=== PATIENT | male | born 1990 | race Hispanic/Latino ===

== ENCOUNTER 2021-05-09 10:57 | Inpatient (IN) | payer SELFPAY ==
[2021-05-09 11:32] LABS: #Lymphocytes 1.4 thou/uL (1.20-3.40); #Monocytes 0.4 thou/uL (0.11-0.59); #Neutrophils 6.3 thou/uL (1.40-6.50); %Basophils 0.1 % (0.0-1.0); %Eosinophils 0.1 % (0.0-10.0); %Lymphocytes 17.6 % (21.0-51.0); %Monocytes 5.2 % (0.0-10.0); Hemoglobin 15.4 g/dL (14.0-18.0); Mean Corpuscular HGB CONC 33.3 g/dL (32.0-36.0); Mean Corpuscular Volume 86.9 fL (78.0-98.0); Mean Platelet Volume 7.1 fL (7.4-10.4); Platelet Count 264 thou/uL (130-400); RBC Distribution Width 11.8 % (11.5-14.5); Red Blood Cell (RBC) Count 5.31 mill/uL (4.70-6.10); White Blood Cell (WBC) Count 8.2 thou/uL (4.8-10.8)
[2021-05-09] MEDS ORDERED: Albuterol 200 PUFF (6.7GM INHALER) ONE (11:45)
[2021-05-09] MEDS ORDERED: Ketorolac Tromethamine 30 MG/ML VIAL ONE (11:45)
[2021-05-09 11:47] LABS: ALT (SGPT) 239 U/L (8-55); AST (SGOT) 145 U/L (5-34); Alkaline Phosphatase 117 U/L (40-110); Anion Gap 16 mmol/L (10-20); BUN (Urea Nitrogen) 7 mg/dL (8.9-20.6); Bilirubin, Total 0.6 mg/dL (0.2-1.2); Calc. Creatinine Clearance 0 mL/min (70-130); Calcium 9.2 mg/dL (7.8-10.44); Carbon Dioxide 23 mmol/L (22-29); Chloride 103 mmol/L (98-107); Globulin 4.1 g/dL (2.4-3.5); Glucose 139 mg/dL (70-105); Potassium 3.5 mmol/L (3.5-5.1); Protein, Total 8.1 g/dL (6.0-8.3); Sodium 138 mmol/L (136-145)
[2021-05-09] MEDS ORDERED: Iopamidol-370 76% 500 ML 1 ML ONE (12:19)
[2021-05-09 14:44] LABS: SARS-CoV-2 NAA Rapid Test DETECTED (NotDetected)
[2021-05-09] MEDS ORDERED: Acetaminophen 500 MG TAB ONE (16:36)
[2021-05-09] MEDS ORDERED: Ondansetron PF 4 MG/2 ML Vial IVP PRN (16:42)
[2021-05-09] MEDS ORDERED: Senokot S 8.6-50 MG TAB PO PRN (16:42)
[2021-05-09] MEDS ORDERED: Benzonatate 100 MG CAP PO PRN (16:45)
[2021-05-09] MEDS ORDERED: Melatonin 3 MG TAB PO PRN (16:47)
[2021-05-09] MEDS ORDERED: Albuterol 200 PUFF (6.7GM INHALER) INH PRN (20:34)
[2021-05-09] MEDS ORDERED: REMDESIVIR 200 MG in Sodium Chloride 0.9% 250 ML 210 ML IV SCH (21:00)
[2021-05-09] MEDS ORDERED: Dexamethasone 10 MG/ML VIAL SLOW IVP SCH (21:15)
[2021-05-09] MEDS: Acetaminophen 325 MG TAB PO PRN (21:48)
[2021-05-09] MEDS ORDERED: Dexamethasone 4 mg/ml Vial SLOW IVP SCH (22:00)
[2021-05-09 22:48] VITALS: BMI 32.0
[2021-05-10] MEDS ORDERED: Ibuprofen 100 MG/5 ML UDCUP PO SCH (00:15)
[2021-05-10 06:06] LABS: #Lymphocytes 0.8 thou/uL (1.20-3.40); #Monocytes 0.3 thou/uL (0.11-0.59); #Neutrophils 6.2 thou/uL (1.40-6.50); %Basophils 0.4 % (0.0-1.0); %Lymphocytes 11.3 % (21.0-51.0); %Monocytes 3.5 % (0.0-10.0); %Neutrophils 84.9 % (42.0-75.0); Hemoglobin 13.6 g/dL (14.0-18.0); Mean Corpuscular HGB CONC 32.2 g/dL (32.0-36.0); Mean Corpuscular Hemoglobin 28.3 pg (27.0-31.0); Mean Corpuscular Volume 87.8 fL (78.0-98.0); Mean Platelet Volume 6.8 fL (7.4-10.4); Platelet Count 284 thou/uL (130-400); RBC Distribution Width 11.5 % (11.5-14.5); White Blood Cell (WBC) Count 7.3 thou/uL (4.8-10.8)
[2021-05-10 06:29] LABS: ALT (SGPT) 176 U/L (8-55); AST (SGOT) 94 U/L (5-34); Albumin 3.6 g/dL (3.5-5.0); Alkaline Phosphatase 107 U/L (40-110); Anion Gap 16 mmol/L (10-20); BUN (Urea Nitrogen) 11 mg/dL (8.9-20.6); Bilirubin, Total 0.5 mg/dL (0.2-1.2); CRP (Inflammatory) 20.62 mg/dL (= or < 0.5); Calc. Creatinine Clearance 221 mL/min (70-130); Calcium 8.4 mg/dL (7.8-10.44); Carbon Dioxide 23 mmol/L (22-29); Chloride 107 mmol/L (98-107); Globulin 2.9 g/dL (2.4-3.5); Glucose 163 mg/dL (70-105); Potassium 3.9 mmol/L (3.5-5.1); Protein, Total 6.5 g/dL (6.0-8.3); Sodium 142 mmol/L (136-145)
[2021-05-10] MEDS: Enoxaparin Sodium 40 MG/0.4 ML SYRINGE SC SCH (08:56)
[2021-05-10] MEDS: Dexamethasone 10 MG/ML VIAL SLOW IVP SCH (08:56)
[2021-05-10] MEDS: Acetaminophen 325 MG TAB PO PRN (14:00)
[2021-05-10] MEDS: REMDESIVIR 100 MG in Sodium Chloride 0.9% 250 ML 230 ML IV SCH (20:22)
[2021-05-11] MEDS: Enoxaparin Sodium 40 MG/0.4 ML SYRINGE SC SCH (08:58)
[2021-05-11] MEDS: Dexamethasone 10 MG/ML VIAL SLOW IVP SCH (08:58)
[2021-05-11] MEDS: Acetaminophen 325 MG TAB PO PRN ×2 (09:02→19:59)
[2021-05-11] MEDS ORDERED: Ascorbic Acid 500 mg Chewable Tablet PO SCH (18:45)
[2021-05-11] MEDS ORDERED: Zinc Sulfate 220 MG CAP PO SCH (18:45)
[2021-05-11] MEDS: REMDESIVIR 100 MG in Sodium Chloride 0.9% 250 ML 230 ML IV SCH (20:00)
[2021-05-12 05:40] LABS: #Lymphocytes 1.2 thou/uL (1.20-3.40); #Monocytes 1.1 thou/uL (0.11-0.59); #Neutrophils 10.3 thou/uL (1.40-6.50); %Basophils 0.1 % (0.0-1.0); %Eosinophils 0.3 % (0.0-10.0); %Lymphocytes 9.6 % (21.0-51.0); %Neutrophils 81.1 % (42.0-75.0); Hemoglobin 14.4 g/dL (14.0-18.0); Mean Corpuscular HGB CONC 32.8 g/dL (32.0-36.0); Mean Corpuscular Hemoglobin 28.6 pg (27.0-31.0); Mean Corpuscular Volume 87.2 fL (78.0-98.0); Mean Platelet Volume 6.5 fL (7.4-10.4); Platelet Count 440 thou/uL (130-400); RBC Distribution Width 11.4 % (11.5-14.5); Red Blood Cell (RBC) Count 5.02 mill/uL (4.70-6.10); White Blood Cell (WBC) Count 12.7 thou/uL (4.8-10.8)
[2021-05-12 06:45] LABS: ALT (SGPT) 120 U/L (8-55); AST (SGOT) 57 U/L (5-34); Albumin 3.6 g/dL (3.5-5.0); Alkaline Phosphatase 93 U/L (40-110); Anion Gap 14 mmol/L (10-20); BUN (Urea Nitrogen) 17 mg/dL (8.9-20.6); Bilirubin, Total 0.5 mg/dL (0.2-1.2); Calc. Creatinine Clearance 210 mL/min (70-130); Calcium 8.6 mg/dL (7.8-10.44); Carbon Dioxide 25 mmol/L (22-29); Chloride 105 mmol/L (98-107); Glucose 114 mg/dL (70-105); Potassium 3.8 mmol/L (3.5-5.1); Protein, Total 6.6 g/dL (6.0-8.3); Sodium 140 mmol/L (136-145)
[2021-05-12] MEDS: Ascorbic Acid 500 mg Chewable Tablet PO SCH (08:32)
[2021-05-12] MEDS: Enoxaparin Sodium 40 MG/0.4 ML SYRINGE SC SCH (08:32)
[2021-05-12] MEDS: Dexamethasone 10 MG/ML VIAL SLOW IVP SCH (08:32)
[2021-05-12] MEDS: Zinc Sulfate 220 MG CAP PO SCH (08:32)
[2021-05-12] MEDS: REMDESIVIR 100 MG in Sodium Chloride 0.9% 250 ML 230 ML IV SCH (20:04)
[2021-05-13 06:09] LABS: #Basophils 0.1 thou/uL (0.0-0.2); #Eosinphils 0.1 thou/uL (0.0-0.7); #Lymphocytes 1.7 thou/uL (1.20-3.40); #Monocytes 1.3 thou/uL (0.11-0.59); #Neutrophils 12.2 thou/uL (1.40-6.50); %Basophils 0.4 % (0.0-1.0); %Eosinophils 0.4 % (0.0-10.0); %Lymphocytes 10.9 % (21.0-51.0); %Monocytes 8.2 % (0.0-10.0); %Neutrophils 80.2 % (42.0-75.0); Hemoglobin 14.6 g/dL (14.0-18.0); Mean Corpuscular HGB CONC 32.9 g/dL (32.0-36.0); Mean Corpuscular Hemoglobin 28.7 pg (27.0-31.0); Mean Corpuscular Volume 87.2 fL (78.0-98.0); Mean Platelet Volume 6.3 fL (7.4-10.4); Platelet Count 489 thou/uL (130-400); RBC Distribution Width 11.7 % (11.5-14.5); Red Blood Cell (RBC) Count 5.09 mill/uL (4.70-6.10); White Blood Cell (WBC) Count 15.2 thou/uL (4.8-10.8)
[2021-05-13 06:34] LABS: ALT (SGPT) 168 U/L (8-55); AST (SGOT) 98 U/L (5-34); Albumin 3.5 g/dL (3.5-5.0); Alkaline Phosphatase 93 U/L (40-110); Anion Gap 16 mmol/L (10-20); BUN (Urea Nitrogen) 19 mg/dL (8.9-20.6); Bilirubin, Total 0.6 mg/dL (0.2-1.2); Calc. Creatinine Clearance 215 mL/min (70-130); Calcium 8.5 mg/dL (7.8-10.44); Carbon Dioxide 22 mmol/L (22-29); Chloride 106 mmol/L (98-107); Glucose 106 mg/dL (70-105); Potassium 4.1 mmol/L (3.5-5.1); Protein, Total 6.5 g/dL (6.0-8.3); Sodium 140 mmol/L (136-145)
[2021-05-13] MEDS: Enoxaparin Sodium 40 MG/0.4 ML SYRINGE SC SCH (08:25)
[2021-05-13] MEDS: Ascorbic Acid 500 mg Chewable Tablet PO SCH (08:25)
[2021-05-13] MEDS: Dexamethasone 10 MG/ML VIAL SLOW IVP SCH (08:25)
[2021-05-13] MEDS: Zinc Sulfate 220 MG CAP PO SCH (08:25)
[2021-05-13] MEDS: REMDESIVIR 100 MG in Sodium Chloride 0.9% 250 ML 230 ML IV SCH (21:16)
[2021-05-13] MEDS: Acetaminophen 325 MG TAB PO PRN (21:16)
[2021-05-14] MEDS: Dexamethasone 10 MG/ML VIAL SLOW IVP SCH ×2 (08:19→21:33)
[2021-05-14] MEDS: Ascorbic Acid 500 mg Chewable Tablet PO SCH (08:19)
[2021-05-14] MEDS: Enoxaparin Sodium 40 MG/0.4 ML SYRINGE SC SCH (08:19)
[2021-05-14] MEDS: Zinc Sulfate 220 MG CAP PO SCH (08:19)
[2021-05-14] MEDS: Famotidine/PF 20 mg/2ml Vial SLOW IVP SCH (21:33)
[2021-05-14] MEDS: BARICITINIB 2 MG TAB PO SCH (21:33)
[2021-05-14] MEDS: Enoxaparin Sodium 100 MG/ML SYRINGE SC SCH (21:33)
[2021-05-14] MEDS: Acetaminophen 325 MG TAB PO PRN (21:37)
[2021-05-15 07:41] LABS: #Basophils 0.1 thou/uL (0.0-0.2); #Eosinphils 0.1 thou/uL (0.0-0.7); #Lymphocytes 1.7 thou/uL (1.20-3.40); #Monocytes 0.9 thou/uL (0.11-0.59); #Neutrophils 13.7 thou/uL (1.40-6.50); %Basophils 0.4 % (0.0-1.0); %Eosinophils 0.3 % (0.0-10.0); %Lymphocytes 10.2 % (21.0-51.0); %Monocytes 5.3 % (0.0-10.0); %Neutrophils 83.7 % (42.0-75.0); Mean Corpuscular HGB CONC 33.4 g/dL (32.0-36.0); Mean Corpuscular Hemoglobin 29.3 pg (27.0-31.0); Mean Corpuscular Volume 87.7 fL (78.0-98.0); Mean Platelet Volume 6.6 fL (7.4-10.4); Platelet Count 603 thou/uL (130-400); RBC Distribution Width 11.7 % (11.5-14.5); Red Blood Cell (RBC) Count 5.12 mill/uL (4.70-6.10); White Blood Cell (WBC) Count 16.4 thou/uL (4.8-10.8)
[2021-05-15 08:02] LABS: ALT (SGPT) 116 U/L (8-55); AST (SGOT) 34 U/L (5-34); Albumin 3.6 g/dL (3.5-5.0); Alkaline Phosphatase 87 U/L (40-110); Anion Gap 14 mmol/L (10-20); BUN (Urea Nitrogen) 18 mg/dL (8.9-20.6); Bilirubin, Total 0.5 mg/dL (0.2-1.2); Calc. Creatinine Clearance 218 mL/min (70-130); Carbon Dioxide 24 mmol/L (22-29); Chloride 103 mmol/L (98-107); Globulin 3.2 g/dL (2.4-3.5); Glucose 130 mg/dL (70-105); Potassium 4.5 mmol/L (3.5-5.1); Protein, Total 6.8 g/dL (6.0-8.3); Sodium 136 mmol/L (136-145)
[2021-05-15] MEDS: Famotidine/PF 20 mg/2ml Vial SLOW IVP SCH ×2 (09:22→21:29)
[2021-05-15] MEDS: Dexamethasone 10 MG/ML VIAL SLOW IVP SCH ×2 (09:22→21:30)
[2021-05-15] MEDS: Ascorbic Acid 500 mg Chewable Tablet PO SCH (09:22)
[2021-05-15] MEDS: Zinc Sulfate 220 MG CAP PO SCH (09:23)
[2021-05-15] MEDS: Enoxaparin Sodium 100 MG/ML SYRINGE SC SCH ×2 (11:20→21:29)
[2021-05-15] MEDS: BARICITINIB 2 MG TAB PO SCH (21:29)
[2021-05-15] MEDS: Acetaminophen 325 MG TAB PO PRN (21:43)
[2021-05-16 06:52] LABS: #Eosinphils 0.1 thou/uL (0.0-0.7); #Monocytes 1.1 thou/uL (0.11-0.59); #Neutrophils 16.4 thou/uL (1.40-6.50); %Basophils 0.1 % (0.0-1.0); %Eosinophils 0.7 % (0.0-10.0); %Monocytes 5.4 % (0.0-10.0); %Neutrophils 83.8 % (42.0-75.0); Hemoglobin 15.6 g/dL (14.0-18.0); Mean Corpuscular HGB CONC 32.6 g/dL (32.0-36.0); Mean Corpuscular Hemoglobin 28.3 pg (27.0-31.0); Mean Platelet Volume 6.7 fL (7.4-10.4); Platelet Count 658 thou/uL (130-400); RBC Distribution Width 11.7 % (11.5-14.5); Red Blood Cell (RBC) Count 5.51 mill/uL (4.70-6.10); White Blood Cell (WBC) Count 19.6 thou/uL (4.8-10.8)
[2021-05-16 07:14] LABS: ALT (SGPT) 154 U/L (8-55); AST (SGOT) 53 U/L (5-34); Albumin 3.7 g/dL (3.5-5.0); Alkaline Phosphatase 90 U/L (40-110); Anion Gap 15 mmol/L (10-20); BUN (Urea Nitrogen) 20 mg/dL (8.9-20.6); Bilirubin, Total 0.6 mg/dL (0.2-1.2); Calc. Creatinine Clearance 215 mL/min (70-130); Calcium 9.2 mg/dL (7.8-10.44); Carbon Dioxide 21 mmol/L (22-29); Chloride 105 mmol/L (98-107); Globulin 3.4 g/dL (2.4-3.5); Glucose 127 mg/dL (70-105); Potassium 4.5 mmol/L (3.5-5.1); Protein, Total 7.1 g/dL (6.0-8.3); Sodium 136 mmol/L (136-145)
[2021-05-16] MEDS: Famotidine/PF 20 mg/2ml Vial SLOW IVP SCH ×2 (08:26→21:36)
[2021-05-16] MEDS: Enoxaparin Sodium 100 MG/ML SYRINGE SC SCH ×2 (08:26→21:36)
[2021-05-16] MEDS: Ascorbic Acid 500 mg Chewable Tablet PO SCH (08:26)
[2021-05-16] MEDS: Dexamethasone 10 MG/ML VIAL SLOW IVP SCH ×2 (08:26→21:36)
[2021-05-16] MEDS: Zinc Sulfate 220 MG CAP PO SCH (08:27)
[2021-05-16] MEDS: Acetaminophen 325 MG TAB PO PRN (09:33)
[2021-05-16] MEDS: BARICITINIB 2 MG TAB PO SCH (21:35)
[2021-05-17] MEDS: Zinc Sulfate 220 MG CAP PO SCH (07:43)
[2021-05-17] MEDS: Ascorbic Acid 500 mg Chewable Tablet PO SCH (07:43)
[2021-05-17] MEDS: Famotidine/PF 20 mg/2ml Vial SLOW IVP SCH ×2 (07:43→20:59)
[2021-05-17 07:44] LABS: Hemoglobin 15.4 g/dL (14.0-18.0); Mean Corpuscular HGB CONC 35.4 g/dL (32.0-36.0); Mean Corpuscular Hemoglobin 30.7 pg (27.0-31.0); Mean Corpuscular Volume 86.6 fL (78.0-98.0); Mean Platelet Volume 6.7 fL (7.4-10.4); Platelet Count 582 thou/uL (130-400); RBC Distribution Width 11.6 % (11.5-14.5); Red Blood Cell (RBC) Count 5.01 mill/uL (4.70-6.10); White Blood Cell (WBC) Count 20.2 thou/uL (4.8-10.8)
[2021-05-17] MEDS: Dexamethasone 10 MG/ML VIAL SLOW IVP SCH ×2 (07:45→20:59)
[2021-05-17] MEDS: Enoxaparin Sodium 100 MG/ML SYRINGE SC SCH ×2 (07:46→20:59)
[2021-05-17 07:55] LABS: ALT (SGPT) 168 U/L (8-55); AST (SGOT) 50 U/L (5-34); Albumin 3.5 g/dL (3.5-5.0); Alkaline Phosphatase 83 U/L (40-110); Anion Gap 15 mmol/L (10-20); BUN (Urea Nitrogen) 22 mg/dL (8.9-20.6); Bilirubin, Total 0.7 mg/dL (0.2-1.2); Calc. Creatinine Clearance 221 mL/min (70-130); Carbon Dioxide 20 mmol/L (22-29); Chloride 103 mmol/L (98-107); Globulin 3.5 g/dL (2.4-3.5); Glucose 115 mg/dL (70-105); Potassium 4.4 mmol/L (3.5-5.1); Sodium 134 mmol/L (136-145)
[2021-05-17 08:11] LABS: Band 3 % (5-11); Lymphocytes 10 % (21-51); MDiff Complete? YES; Monocytes 7 % (0-10); Neutrophil 80 % (42-75)
[2021-05-17] MEDS: Acetaminophen 325 MG TAB PO PRN (20:12)
[2021-05-17 20:14] LABS: Troponin I Less than 0.010 ng/mL (< 0.028)
[2021-05-17] MEDS ORDERED: Morphine 2 MG/ML VIAL SLOW IVP SCH (20:21)
[2021-05-17] MEDS: BARICITINIB 2 MG TAB PO SCH (20:58)
[2021-05-18] MEDS: Famotidine/PF 20 mg/2ml Vial SLOW IVP SCH (08:11)
[2021-05-18] MEDS: Zinc Sulfate 220 MG CAP PO SCH (08:11)
[2021-05-18] MEDS: Ascorbic Acid 500 mg Chewable Tablet PO SCH (08:11)
[2021-05-18] MEDS: Enoxaparin Sodium 100 MG/ML SYRINGE SC SCH ×2 (08:12→22:16)
[2021-05-18] MEDS: Dexamethasone 10 MG/ML VIAL SLOW IVP SCH ×2 (08:30→22:16)
[2021-05-18 09:39] LABS: Mean Corpuscular Volume 87.5 fL (78.0-98.0); Mean Platelet Volume 6.6 fL (7.4-10.4); Platelet Count 612 thou/uL (130-400); RBC Distribution Width 11.8 % (11.5-14.5); Red Blood Cell (RBC) Count 5.72 mill/uL (4.70-6.10); White Blood Cell (WBC) Count 24.6 thou/uL (4.8-10.8)
[2021-05-18 10:08] LABS: Lymphocytes 11 % (21-51); MDiff Complete? YES; Monocytes 5 % (0-10); Neutrophil 84 % (42-75); Platelet Morphology Comment Appears Increased; RBC Morphology Normal
[2021-05-18 10:18] LABS: ALT (SGPT) 179 U/L (8-55); AST (SGOT) 38 U/L (5-34); Albumin 3.9 g/dL (3.5-5.0); Alkaline Phosphatase 99 U/L (40-110); Anion Gap 16 mmol/L (10-20); BUN (Urea Nitrogen) 21 mg/dL (8.9-20.6); Bilirubin, Total 0.8 mg/dL (0.2-1.2); Calc. Creatinine Clearance 202 mL/min (70-130); Calcium 9.2 mg/dL (7.8-10.44); Carbon Dioxide 22 mmol/L (22-29); Chloride 102 mmol/L (98-107); Globulin 3.5 g/dL (2.4-3.5); Glucose 98 mg/dL (70-105); Potassium 4.1 mmol/L (3.5-5.1); Protein, Total 7.4 g/dL (6.0-8.3); Sodium 136 mmol/L (136-145)
[2021-05-18] MEDS: Acetaminophen 325 MG TAB PO PRN (10:45)
[2021-05-18] MEDS ORDERED: Dexamethasone 10 MG/ML VIAL SLOW IVP SCH (12:00)
[2021-05-18] MEDS ORDERED: cefTRIAXone\\ROCEPHIN 1 GM in Sodium Chloride 0.9% 100 ML IVPB SCH (14:00)
[2021-05-18] MEDS ORDERED: Azithromycin 500 MG in Sodium Chloride 0.9% 250 ML 250 ML IVPB SCH (15:00)
[2021-05-18 16:19] LABS: Legionella Urinary Ag Negative (Negative); Strep pneumo Urine Ag NEGATIVE (NEGATIVE)
[2021-05-18] MEDS: Morphine 2 MG/ML VIAL SLOW IVP PRN (22:15)
[2021-05-18] MEDS: Pantoprazole 40 MG VIAL IVP SCH (22:16)
[2021-05-19] MEDS: Transdermal Patch Removal TOP SCH (00:17)
[2021-05-19] MEDS: Morphine 2 MG/ML VIAL SLOW IVP PRN ×2 (05:42→20:45)
[2021-05-19 07:11] LABS: Hemoglobin 16.1 g/dL (14.0-18.0); Mean Corpuscular HGB CONC 32.3 g/dL (32.0-36.0); Mean Corpuscular Hemoglobin 28.2 pg (27.0-31.0); Mean Corpuscular Volume 87.2 fL (78.0-98.0); Mean Platelet Volume 6.9 fL (7.4-10.4); Platelet Count 593 thou/uL (130-400); RBC Distribution Width 11.8 % (11.5-14.5); Red Blood Cell (RBC) Count 5.73 mill/uL (4.70-6.10); White Blood Cell (WBC) Count 27.2 thou/uL (4.8-10.8)
[2021-05-19 07:32] LABS: ALT (SGPT) 134 U/L (8-55); AST (SGOT) 25 U/L (5-34); Albumin 3.9 g/dL (3.5-5.0); Alkaline Phosphatase 102 U/L (40-110); Anion Gap 15 mmol/L (10-20); BUN (Urea Nitrogen) 21 mg/dL (8.9-20.6); Bilirubin, Total 0.7 mg/dL (0.2-1.2); Calc. Creatinine Clearance 218 mL/min (70-130); Calcium 9.6 mg/dL (7.8-10.44); Carbon Dioxide 22 mmol/L (22-29); Chloride 103 mmol/L (98-107); Globulin 3.5 g/dL (2.4-3.5); Glucose 132 mg/dL (70-105); Protein, Total 7.4 g/dL (6.0-8.3); Sodium 136 mmol/L (136-145)
[2021-05-19] MEDS: Zinc Sulfate 220 MG CAP PO SCH (08:26)
[2021-05-19] MEDS: Dexamethasone 10 MG/ML VIAL SLOW IVP SCH ×2 (08:26→20:45)
[2021-05-19] MEDS: Ascorbic Acid 500 mg Chewable Tablet PO SCH (08:26)
[2021-05-19] MEDS: Pantoprazole 40 MG VIAL IVP SCH ×2 (08:27→20:45)
[2021-05-19 09:00] LABS: Band 5 % (5-11); Lymphocytes 7 % (21-51); MDiff Complete? YES; Monocytes 6 % (0-10); Neutrophil 80 % (42-75); Platelet Morphology Comment Appears Increased; RBC Morphology Normal; Reactive Lymphocytes 2 % (0-10)
[2021-05-19] MEDS: Enoxaparin Sodium 100 MG/ML SYRINGE SC SCH ×2 (09:51→21:21)
[2021-05-19] MEDS ORDERED: Piperacillin/Tazobactam 3.375 GM in Sodium Chloride 0.9% 100 ML IVPB SCH ×2 (10:30→11:00)
[2021-05-19] MEDS: Lidocaine 5% Patch TD SCH (12:21)
[2021-05-19] MEDS: VANCOMYCIN 2 GRAM/400 ML BAG 2 GM in Premix Bag 1 BAG IVPB SCH ×2 (14:21→21:35)
[2021-05-19] MEDS: Piperacillin/Tazobactam 3.375 GM in Sodium Chloride 0.9% 100 ML IVPB SCH (20:45)
[2021-05-20] MEDS: Transdermal Patch Removal TOP SCH (01:44)
[2021-05-20] MEDS: Piperacillin/Tazobactam 3.375 GM in Sodium Chloride 0.9% 100 ML IVPB SCH ×3 (03:24→21:36)
[2021-05-20] MEDS: VANCOMYCIN 2 GRAM/400 ML BAG 2 GM in Premix Bag 1 BAG IVPB SCH (05:22)
[2021-05-20 07:11] LABS: #Eosinphils 0.1 thou/uL (0.0-0.7); #Lymphocytes 1.9 thou/uL (1.20-3.40); #Monocytes 1.2 thou/uL (0.11-0.59); #Neutrophils 21.5 thou/uL (1.40-6.50); %Basophils 0.1 % (0.0-1.0); %Eosinophils 0.2 % (0.0-10.0); %Lymphocytes 7.7 % (21.0-51.0); %Monocytes 4.7 % (0.0-10.0); %Neutrophils 87.3 % (42.0-75.0); Hemoglobin 15.7 g/dL (14.0-18.0); Mean Corpuscular HGB CONC 32.4 g/dL (32.0-36.0); Mean Corpuscular Hemoglobin 28.4 pg (27.0-31.0); Mean Corpuscular Volume 87.7 fL (78.0-98.0); Mean Platelet Volume 7.1 fL (7.4-10.4); Platelet Count 509 thou/uL (130-400); RBC Distribution Width 11.9 % (11.5-14.5); Red Blood Cell (RBC) Count 5.53 mill/uL (4.70-6.10); White Blood Cell (WBC) Count 24.7 thou/uL (4.8-10.8)
[2021-05-20 07:47] LABS: Vancomycin, Trough 12.9 ug/mL
[2021-05-20 07:55] LABS: ALT (SGPT) 149 U/L (8-55); AST (SGOT) 39 U/L (5-34); Albumin 3.7 g/dL (3.5-5.0); Alkaline Phosphatase 94 U/L (40-110); Anion Gap 16 mmol/L (10-20); BUN (Urea Nitrogen) 19 mg/dL (8.9-20.6); Bilirubin, Total 0.7 mg/dL (0.2-1.2); Calc. Creatinine Clearance 231 mL/min (70-130); Calcium 9.1 mg/dL (7.8-10.44); Carbon Dioxide 22 mmol/L (22-29); Chloride 103 mmol/L (98-107); Globulin 3.2 g/dL (2.4-3.5); Glucose 107 mg/dL (70-105); Potassium 3.9 mmol/L (3.5-5.1); Protein, Total 6.9 g/dL (6.0-8.3); Sodium 137 mmol/L (136-145)
[2021-05-20] MEDS: Zinc Sulfate 220 MG CAP PO SCH (08:03)
[2021-05-20] MEDS: Ascorbic Acid 500 mg Chewable Tablet PO SCH (08:03)
[2021-05-20] MEDS: Pantoprazole 40 MG VIAL IVP SCH ×2 (08:04→21:40)
[2021-05-20] MEDS: Enoxaparin Sodium 100 MG/ML SYRINGE SC SCH ×2 (08:07→21:39)
[2021-05-20] MEDS: Dexamethasone 10 MG/ML VIAL SLOW IVP SCH ×2 (08:07→21:37)
[2021-05-20] MEDS: Lidocaine 5% Patch TD SCH (12:07)
[2021-05-20] MEDS ORDERED: VANCOMYCIN 2 GRAM/400 ML BAG 2 GM in Premix Bag 1 BAG IVPB SCH (14:00)
[2021-05-20 14:11] LABS: Vancomycin, Trough 10.5 ug/mL
[2021-05-20] MEDS: Gabapentin 100 MG CAP PO SCH (21:39)
[2021-05-21] MEDS: Transdermal Patch Removal TOP SCH (00:44)
[2021-05-21] MEDS: Piperacillin/Tazobactam 3.375 GM in Sodium Chloride 0.9% 100 ML IVPB SCH (04:43)
[2021-05-21 06:49] LABS: #Eosinphils 0.1 thou/uL (0.0-0.7); #Lymphocytes 1.3 thou/uL (1.20-3.40); #Monocytes 0.6 thou/uL (0.11-0.59); %Basophils 0.1 % (0.0-1.0); %Eosinophils 0.4 % (0.0-10.0); %Lymphocytes 8.4 % (21.0-51.0); %Monocytes 4.1 % (0.0-10.0); Hemoglobin 15.5 g/dL (14.0-18.0); Mean Corpuscular HGB CONC 34.7 g/dL (32.0-36.0); Mean Corpuscular Hemoglobin 30.2 pg (27.0-31.0); Mean Corpuscular Volume 87.1 fL (78.0-98.0); Platelet Count 437 thou/uL (130-400); RBC Distribution Width 11.8 % (11.5-14.5); Red Blood Cell (RBC) Count 5.11 mill/uL (4.70-6.10)
[2021-05-21] MEDS ORDERED: Albuterol 200 PUFF (6.7GM INHALER) INH SCH (07:00)
[2021-05-21 07:14] LABS: ALT (SGPT) 149 U/L (8-55); AST (SGOT) 40 U/L (5-34); Albumin 3.6 g/dL (3.5-5.0); Alkaline Phosphatase 95 U/L (40-110); Anion Gap 15 mmol/L (10-20); BUN (Urea Nitrogen) 20 mg/dL (8.9-20.6); Bilirubin, Total 0.7 mg/dL (0.2-1.2); Calc. Creatinine Clearance 249 mL/min (70-130); Calcium 8.9 mg/dL (7.8-10.44); Carbon Dioxide 21 mmol/L (22-29); Chloride 103 mmol/L (98-107); Globulin 3.1 g/dL (2.4-3.5); Glucose 122 mg/dL (70-105); Potassium 4.1 mmol/L (3.5-5.1); Protein, Total 6.7 g/dL (6.0-8.3); Sodium 135 mmol/L (136-145)
[2021-05-21] MEDS ORDERED: GUAIFENESIN SF SOLN 200 MG/10 ML UDCUP PO PRN (07:14)
[2021-05-21] MEDS ORDERED: hydrALAZINE 20 MG/ML VIAL SLOW IVP PRN (07:14)
[2021-05-21] MEDS ORDERED: Cepastat Lozenges 1 LOZ PO PRN (07:14)
[2021-05-21] MEDS ORDERED: Hydrocerin (Eucerin) Cream 120 gm Jar TOP PRN (07:14)
[2021-05-21] MEDS ORDERED: HYDROcodone/Acetaminophen 5/325 mg Tablet PO PRN (07:14)
[2021-05-21] MEDS ORDERED: Zolpidem Tartrate 5 MG TAB PO PRN (07:14)
[2021-05-21] MEDS ORDERED: Loperamide HCl 2 MG CAP PO PRN (07:14)
[2021-05-21] MEDS ORDERED: Ondansetron ODT 4 MG TAB PO PRN (07:14)
[2021-05-21] MEDS ORDERED: Calcium Carbonate 500 MG ChewTAB PO PRN (07:14)
[2021-05-21] MEDS ORDERED: Loratadine 10 MG TAB PO PRN (07:14)
[2021-05-21] MEDS ORDERED: Sodium Chloride 0.65% Nasal 44 ML BOT EA NARE PRN (07:14)
[2021-05-21] MEDS ORDERED: Labetalol HCl 100 MG/20 ML VIAL SLOW IVP PRN (07:14)
[2021-05-21] MEDS ORDERED: Bisacodyl 5 MG TAB PO PRN (07:14)
[2021-05-21] MEDS ORDERED: Albuterol 200 PUFF (6.7GM INHALER) INH PRN (07:26)
[2021-05-21] MEDS: Dexamethasone 10 MG/ML VIAL SLOW IVP SCH (08:08)
[2021-05-21] MEDS: Ascorbic Acid 500 mg Chewable Tablet PO SCH (08:08)
[2021-05-21] MEDS: Zinc Sulfate 220 MG CAP PO SCH (08:08)
[2021-05-21] MEDS: Enoxaparin Sodium 100 MG/ML SYRINGE SC SCH (08:09)
[2021-05-21] MEDS: Pantoprazole 40 MG VIAL IVP SCH (08:09)
[2021-05-21] MEDS: Albuterol 200 PUFF (6.7GM INHALER) INH SCH ×3 (08:16→18:43)
[2021-05-21] MEDS ORDERED: Artificial Tear Sol 15 ML BOT EA EYE PRN (09:00)
[2021-05-21] MEDS: cefTRIAXone\\ROCEPHIN 1 GM in Sodium Chloride 0.9% 100 ML IVPB SCH (10:23)
[2021-05-21] MEDS: Lidocaine 5% Patch TD SCH (12:44)
[2021-05-21] MEDS: Gabapentin 100 MG CAP PO SCH (21:08)
[2021-05-21] MEDS: Enoxaparin Sodium 40 MG/0.4 ML SYRINGE SC SCH (21:08)
[2021-05-22] MEDS: Transdermal Patch Removal TOP SCH (00:25)
[2021-05-22] MEDS: Albuterol 200 PUFF (6.7GM INHALER) INH SCH ×4 (01:30→18:41)
[2021-05-22 07:07] LABS: #Eosinphils 0.2 thou/uL (0.0-0.7); #Lymphocytes 2.3 thou/uL (1.20-3.40); #Monocytes 1.3 thou/uL (0.11-0.59); #Neutrophils 8.7 thou/uL (1.40-6.50); %Basophils 0.1 % (0.0-1.0); %Eosinophils 1.3 % (0.0-10.0); %Lymphocytes 18.5 % (21.0-51.0); %Monocytes 10.4 % (0.0-10.0); %Neutrophils 69.6 % (42.0-75.0); Hemoglobin 14.6 g/dL (14.0-18.0); Mean Corpuscular HGB CONC 32.6 g/dL (32.0-36.0); Mean Corpuscular Hemoglobin 28.9 pg (27.0-31.0); Mean Corpuscular Volume 88.6 fL (78.0-98.0); Platelet Count 420 thou/uL (130-400); RBC Distribution Width 11.9 % (11.5-14.5); Red Blood Cell (RBC) Count 5.07 mill/uL (4.70-6.10); White Blood Cell (WBC) Count 12.5 thou/uL (4.8-10.8)
[2021-05-22 07:33] LABS: ALT (SGPT) 154 U/L (8-55); AST (SGOT) 38 U/L (5-34); Albumin 3.4 g/dL (3.5-5.0); Alkaline Phosphatase 88 U/L (40-110); Anion Gap 13 mmol/L (10-20); BUN (Urea Nitrogen) 21 mg/dL (8.9-20.6); Bilirubin, Total 0.7 mg/dL (0.2-1.2); Calc. Creatinine Clearance 249 mL/min (70-130); Calcium 8.7 mg/dL (7.8-10.44); Carbon Dioxide 23 mmol/L (22-29); Chloride 104 mmol/L (98-107); Globulin 2.8 g/dL (2.4-3.5); Glucose 92 mg/dL (70-105); Protein, Total 6.2 g/dL (6.0-8.3); Sodium 136 mmol/L (136-145)
[2021-05-22] MEDS: Zinc Sulfate 220 MG CAP PO SCH (08:56)
[2021-05-22] MEDS: Ascorbic Acid 500 mg Chewable Tablet PO SCH (08:56)
[2021-05-22] MEDS: cefTRIAXone\\ROCEPHIN 1 GM in Sodium Chloride 0.9% 100 ML IVPB SCH (08:57)
[2021-05-22] MEDS: Enoxaparin Sodium 40 MG/0.4 ML SYRINGE SC SCH ×2 (08:57→21:05)
[2021-05-22] MEDS: Dexamethasone 10 MG/ML VIAL SLOW IVP SCH (08:57)
[2021-05-22] MEDS: Lidocaine 5% Patch TD SCH ×2 (12:37→12:43)
[2021-05-22] MEDS: Gabapentin 100 MG CAP PO SCH (21:05)
[2021-05-23] MEDS: Transdermal Patch Removal TOP SCH ×2 (00:15→20:04)
[2021-05-23] MEDS: Albuterol 200 PUFF (6.7GM INHALER) INH SCH ×4 (01:20→18:05)
[2021-05-23 06:55] LABS: #Basophils 0.2 thou/uL (0.0-0.2); #Eosinphils 0.2 thou/uL (0.0-0.7); #Lymphocytes 2.1 thou/uL (1.20-3.40); #Monocytes 1.3 thou/uL (0.11-0.59); #Neutrophils 10.8 thou/uL (1.40-6.50); %Basophils 1.1 % (0.0-1.0); %Eosinophils 1.2 % (0.0-10.0); %Lymphocytes 14.2 % (21.0-51.0); %Monocytes 8.9 % (0.0-10.0); %Neutrophils 74.7 % (42.0-75.0); Hemoglobin 14.4 g/dL (14.0-18.0); Mean Corpuscular HGB CONC 33.4 g/dL (32.0-36.0); Mean Corpuscular Hemoglobin 29.5 pg (27.0-31.0); Mean Corpuscular Volume 88.1 fL (78.0-98.0); Mean Platelet Volume 6.8 fL (7.4-10.4); Platelet Count 402 thou/uL (130-400); RBC Distribution Width 11.8 % (11.5-14.5); Red Blood Cell (RBC) Count 4.88 mill/uL (4.70-6.10); White Blood Cell (WBC) Count 14.5 thou/uL (4.8-10.8)
[2021-05-23 07:06] LABS: ALT (SGPT) 154 U/L (8-55); AST (SGOT) 31 U/L (5-34); Albumin 3.3 g/dL (3.5-5.0); Alkaline Phosphatase 89 U/L (40-110); Anion Gap 13 mmol/L (10-20); BUN (Urea Nitrogen) 16 mg/dL (8.9-20.6); Bilirubin, Total 0.5 mg/dL (0.2-1.2); Calc. Creatinine Clearance 275 mL/min (70-130); Carbon Dioxide 23 mmol/L (22-29); Chloride 105 mmol/L (98-107); Globulin 2.9 g/dL (2.4-3.5); Glucose 98 mg/dL (70-105); Potassium 3.6 mmol/L (3.5-5.1); Protein, Total 6.2 g/dL (6.0-8.3); Sodium 137 mmol/L (136-145)
[2021-05-23] MEDS: Dexamethasone 10 MG/ML VIAL SLOW IVP SCH (09:28)
[2021-05-23] MEDS: Enoxaparin Sodium 40 MG/0.4 ML SYRINGE SC SCH ×2 (09:28→20:28)
[2021-05-23] MEDS: Ascorbic Acid 500 mg Chewable Tablet PO SCH (09:28)
[2021-05-23] MEDS: Zinc Sulfate 220 MG CAP PO SCH (09:29)
[2021-05-23] MEDS: cefTRIAXone\\ROCEPHIN 1 GM in Sodium Chloride 0.9% 100 ML IVPB SCH (09:29)
[2021-05-23] MEDS: Lidocaine 5% Patch TD SCH (13:40)
[2021-05-23] MEDS: Gabapentin 100 MG CAP PO SCH (20:28)
[2021-05-24] MEDS: Albuterol 200 PUFF (6.7GM INHALER) INH SCH ×4 (00:55→20:41)
[2021-05-24 07:14] LABS: #Basophils 0.1 thou/uL (0.0-0.2); #Eosinphils 0.2 thou/uL (0.0-0.7); #Lymphocytes 2.5 thou/uL (1.20-3.40); #Monocytes 0.7 thou/uL (0.11-0.59); #Neutrophils 9.9 thou/uL (1.40-6.50); %Basophils 0.5 % (0.0-1.0); %Eosinophils 1.4 % (0.0-10.0); %Lymphocytes 18.6 % (21.0-51.0); %Neutrophils 74.6 % (42.0-75.0); Hemoglobin 14.1 g/dL (14.0-18.0); Mean Corpuscular HGB CONC 32.8 g/dL (32.0-36.0); Mean Corpuscular Hemoglobin 28.8 pg (27.0-31.0); Mean Corpuscular Volume 87.8 fL (78.0-98.0); Mean Platelet Volume 6.8 fL (7.4-10.4); Platelet Count 424 thou/uL (130-400); RBC Distribution Width 11.8 % (11.5-14.5); White Blood Cell (WBC) Count 13.3 thou/uL (4.8-10.8)
[2021-05-24 07:46] LABS: ALT (SGPT) 163 U/L (8-55); AST (SGOT) 44 U/L (5-34); Albumin 3.3 g/dL (3.5-5.0); Alkaline Phosphatase 91 U/L (40-110); Anion Gap 13 mmol/L (10-20); BUN (Urea Nitrogen) 17 mg/dL (8.9-20.6); Bilirubin, Total 0.5 mg/dL (0.2-1.2); Calc. Creatinine Clearance 253 mL/min (70-130); Carbon Dioxide 24 mmol/L (22-29); Chloride 102 mmol/L (98-107); Globulin 2.8 g/dL (2.4-3.5); Glucose 97 mg/dL (70-105); Potassium 3.7 mmol/L (3.5-5.1); Protein, Total 6.1 g/dL (6.0-8.3); Sodium 135 mmol/L (136-145)
[2021-05-24] MEDS: Ascorbic Acid 500 mg Chewable Tablet PO SCH (08:58)
[2021-05-24] MEDS: cefTRIAXone\\ROCEPHIN 1 GM in Sodium Chloride 0.9% 100 ML IVPB SCH (08:58)
[2021-05-24] MEDS: Enoxaparin Sodium 40 MG/0.4 ML SYRINGE SC SCH ×2 (08:59→20:41)
[2021-05-24] MEDS: Zinc Sulfate 220 MG CAP PO SCH (08:59)
[2021-05-24] MEDS: Dexamethasone 10 MG/ML VIAL SLOW IVP SCH (08:59)
[2021-05-24] MEDS: Lidocaine 5% Patch TD SCH (13:04)
[2021-05-24] MEDS: Gabapentin 100 MG CAP PO SCH (20:41)
[2021-05-24] MEDS: Transdermal Patch Removal TOP SCH (23:10)
[2021-05-25] MEDS: Albuterol 200 PUFF (6.7GM INHALER) INH SCH ×4 (01:30→20:30)
[2021-05-25] MEDS: Zinc Sulfate 220 MG CAP PO SCH (08:29)
[2021-05-25] MEDS: Ascorbic Acid 500 mg Chewable Tablet PO SCH (08:29)
[2021-05-25] MEDS: Enoxaparin Sodium 40 MG/0.4 ML SYRINGE SC SCH ×2 (08:29→20:30)
[2021-05-25] MEDS: Dexamethasone 10 MG/ML VIAL SLOW IVP SCH (08:29)
[2021-05-25] MEDS: cefTRIAXone\\ROCEPHIN 1 GM in Sodium Chloride 0.9% 100 ML IVPB SCH (08:30)
[2021-05-25] MEDS: Lidocaine 5% Patch TD SCH (13:22)
[2021-05-25] MEDS: Gabapentin 100 MG CAP PO SCH (20:31)
[2021-05-25] MEDS: Transdermal Patch Removal TOP SCH (22:42)
[2021-05-26] MEDS: Albuterol 200 PUFF (6.7GM INHALER) INH SCH ×4 (00:13→21:08)
[2021-05-26] MEDS: Ascorbic Acid 500 mg Chewable Tablet PO SCH (08:11)
[2021-05-26] MEDS: Zinc Sulfate 220 MG CAP PO SCH (08:11)
[2021-05-26] MEDS: Enoxaparin Sodium 40 MG/0.4 ML SYRINGE SC SCH ×2 (08:11→21:08)
[2021-05-26] MEDS: Dexamethasone 10 MG/ML VIAL SLOW IVP SCH (08:11)
[2021-05-26 08:23] LABS: #Basophils 0.1 thou/uL (0.0-0.2); #Eosinphils 0.2 thou/uL (0.0-0.7); #Lymphocytes 2.2 thou/uL (1.20-3.40); #Monocytes 0.9 thou/uL (0.11-0.59); #Neutrophils 6.3 thou/uL (1.40-6.50); %Basophils 0.7 % (0.0-1.0); %Eosinophils 2.1 % (0.0-10.0); %Lymphocytes 23.1 % (21.0-51.0); %Monocytes 9.2 % (0.0-10.0); %Neutrophils 64.8 % (42.0-75.0); Hemoglobin 12.8 g/dL (14.0-18.0); Mean Corpuscular HGB CONC 33.7 g/dL (32.0-36.0); Mean Corpuscular Hemoglobin 29.2 pg (27.0-31.0); Mean Corpuscular Volume 86.7 fL (78.0-98.0); Mean Platelet Volume 6.7 fL (7.4-10.4); Platelet Count 398 thou/uL (130-400); RBC Distribution Width 11.9 % (11.5-14.5); White Blood Cell (WBC) Count 9.6 thou/uL (4.8-10.8)
[2021-05-26 08:36] LABS: Anion Gap 12 mmol/L (10-20); BUN (Urea Nitrogen) 14 mg/dL (8.9-20.6); Calc. Creatinine Clearance 265 mL/min (70-130); Carbon Dioxide 27 mmol/L (22-29); Chloride 103 mmol/L (98-107); Glucose 93 mg/dL (70-105); Potassium 3.6 mmol/L (3.5-5.1); Sodium 138 mmol/L (136-145)
[2021-05-26] MEDS: cefTRIAXone\\ROCEPHIN 1 GM in Sodium Chloride 0.9% 100 ML IVPB SCH (10:39)
[2021-05-26] MEDS: Lidocaine 5% Patch TD SCH (13:05)
[2021-05-26] MEDS: Gabapentin 100 MG CAP PO SCH (21:08)
[2021-05-26] MEDS: Transdermal Patch Removal TOP SCH (21:09)
[2021-05-27] MEDS: Albuterol 200 PUFF (6.7GM INHALER) INH SCH ×4 (01:58→19:01)
[2021-05-27 08:10] LABS: #Basophils 0.1 thou/uL (0.0-0.2); #Eosinphils 0.2 thou/uL (0.0-0.7); #Lymphocytes 2.5 thou/uL (1.20-3.40); #Monocytes 0.9 thou/uL (0.11-0.59); #Neutrophils 6.1 thou/uL (1.40-6.50); %Eosinophils 2.3 % (0.0-10.0); %Lymphocytes 25.8 % (21.0-51.0); %Monocytes 8.9 % (0.0-10.0); Mean Corpuscular HGB CONC 33.6 g/dL (32.0-36.0); Mean Corpuscular Hemoglobin 29.2 pg (27.0-31.0); Mean Corpuscular Volume 86.7 fL (78.0-98.0); Mean Platelet Volume 6.7 fL (7.4-10.4); Platelet Count 376 thou/uL (130-400); RBC Distribution Width 11.9 % (11.5-14.5); Red Blood Cell (RBC) Count 4.47 mill/uL (4.70-6.10); White Blood Cell (WBC) Count 9.8 thou/uL (4.8-10.8)
[2021-05-27 08:28] LABS: ALT (SGPT) 128 U/L (8-55); AST (SGOT) 25 U/L (5-34); Albumin 3.2 g/dL (3.5-5.0); Alkaline Phosphatase 84 U/L (40-110); Anion Gap 11 mmol/L (10-20); BUN (Urea Nitrogen) 15 mg/dL (8.9-20.6); Bilirubin, Total 0.4 mg/dL (0.2-1.2); Calc. Creatinine Clearance 253 mL/min (70-130); Calcium 8.9 mg/dL (7.8-10.44); Carbon Dioxide 28 mmol/L (22-29); Chloride 104 mmol/L (98-107); Globulin 2.5 g/dL (2.4-3.5); Glucose 83 mg/dL (70-105); Potassium 3.5 mmol/L (3.5-5.1); Protein, Total 5.7 g/dL (6.0-8.3); Sodium 139 mmol/L (136-145)
[2021-05-27] MEDS: Ascorbic Acid 500 mg Chewable Tablet PO SCH (08:56)
[2021-05-27] MEDS: Zinc Sulfate 220 MG CAP PO SCH (08:57)
[2021-05-27] MEDS: Dexamethasone 10 MG/ML VIAL SLOW IVP SCH ×2 (08:57→12:35)
[2021-05-27] MEDS: Enoxaparin Sodium 40 MG/0.4 ML SYRINGE SC SCH ×2 (08:58→21:04)
[2021-05-27] MEDS: cefTRIAXone\\ROCEPHIN 1 GM in Sodium Chloride 0.9% 100 ML IVPB SCH ×2 (08:58→12:42)
[2021-05-27] MEDS: Lidocaine 5% Patch TD SCH (12:16)
[2021-05-27] MEDS: Transdermal Patch Removal TOP SCH (19:36)
[2021-05-27] MEDS: Gabapentin 100 MG CAP PO SCH (21:04)
[2021-05-28] MEDS: Albuterol 200 PUFF (6.7GM INHALER) INH SCH ×4 (01:31→17:53)
[2021-05-28] MEDS: Dexamethasone 4 MG TAB PO SCH (09:10)
[2021-05-28] MEDS: Zinc Sulfate 220 MG CAP PO SCH (09:10)
[2021-05-28] MEDS: Enoxaparin Sodium 40 MG/0.4 ML SYRINGE SC SCH ×2 (09:10→21:16)
[2021-05-28] MEDS: Ascorbic Acid 500 mg Chewable Tablet PO SCH (09:10)
[2021-05-28] MEDS: cefTRIAXone\\ROCEPHIN 1 GM in Sodium Chloride 0.9% 100 ML IVPB SCH (09:11)
[2021-05-28] MEDS: Lidocaine 5% Patch TD SCH (12:15)
[2021-05-28] MEDS: Transdermal Patch Removal TOP SCH (20:08)
[2021-05-28] MEDS: Gabapentin 100 MG CAP PO SCH (21:15)
[2021-05-29] MEDS: Albuterol 200 PUFF (6.7GM INHALER) INH SCH ×4 (00:56→18:22)
[2021-05-29] MEDS: Dexamethasone 4 MG TAB PO SCH (08:41)
[2021-05-29] MEDS: Zinc Sulfate 220 MG CAP PO SCH (08:41)
[2021-05-29] MEDS: Ascorbic Acid 500 mg Chewable Tablet PO SCH (08:41)
[2021-05-29] MEDS: Enoxaparin Sodium 40 MG/0.4 ML SYRINGE SC SCH ×2 (08:41→20:32)
[2021-05-29] MEDS: Lidocaine 5% Patch TD SCH (12:10)
[2021-05-29] MEDS: Gabapentin 100 MG CAP PO SCH (20:32)
[2021-05-29] MEDS: Transdermal Patch Removal TOP SCH (20:42)
[2021-05-30] MEDS: Albuterol 200 PUFF (6.7GM INHALER) INH SCH ×3 (00:29→13:33)
[2021-05-30 07:50] VITALS: BP 116/75; TEMP 98.3
[2021-05-30] MEDS: Dexamethasone 4 MG TAB PO SCH (08:36)
[2021-05-30] MEDS: Ascorbic Acid 500 mg Chewable Tablet PO SCH (08:36)
[2021-05-30] MEDS: Enoxaparin Sodium 40 MG/0.4 ML SYRINGE SC SCH (08:36)
[2021-05-30] MEDS: Zinc Sulfate 220 MG CAP PO SCH (08:36)
[2021-05-30] MEDS: Lidocaine 5% Patch TD SCH (16:35)
== END 2021-05-30 18:40 | disposition home or self-care (01) | DRG 871 ==
LOC: SUATTDRO 10:57 → ERS 10:57 → T4-A 20:29
PROVIDERS: ADMIT Internal Medicine; ATTEND Internal Medicine
PROC: 8E0ZXY6 Isolation (ICD-10-PCS; principal; 2021-05-09)
PROC: 3E0333Z Introduction of Anti-inflammatory into Peripheral Vein, Percutaneous Approach (ICD-10-PCS; 2021-05-09)
PROC: XW033E5 Introduction of Remdesivir Anti-infective into Peripheral Vein, Percutaneous Approach, New Technology Group 5 (ICD-10-PCS; 2021-05-10)
PROC: XW0DXM6 Introduction of Baricitinib into Mouth and Pharynx, External Approach, New Technology Group 6 (ICD-10-PCS; 2021-05-14)
DX: A41.89 Other specified sepsis (principal); J96.01 Acute respiratory failure with hypoxia; U07.1 COVID-19; J12.82 Pneumonia due to coronavirus disease 2019; R65.20 Severe sepsis without septic shock; R19.7 Diarrhea, unspecified; E66.9 Obesity, unspecified; R20.0 Anesthesia of skin; Z68.32 Body mass index [BMI] 32.0-32.9, adult
CPT/HCPCS: 0240U; 36415; 71045; 71275; 80048; 80053; 80202; 82728; 83735; 83880; 84145; 84484; 85025; 85379; 85652; 86140; 87040; 87081; 87449; 87899; 93005; 93010; 96374; C9113; J0456; J0696; J1100; J1650; J1885; J2270; J2543; J3370; J3490; J7050; J8540; Q9967; S0028